=== PATIENT | male | born 1950 | race Caucasian/White ===

== ENCOUNTER 2022-04-06 12:13 | Outpatient (CLI) | payer MEDICARE, OTHER, SELFPAY | END 2022-04-06 12:14 | disposition home or self-care (01) | LOC: AMB 04-12 12:12 | PROVIDERS: PCP Family Medicine; Visit Provider Family Medicine | DX: R55 Syncope and collapse (principal); R42 Dizziness and giddiness | CPT/HCPCS: A0425; A0427 ==

== ENCOUNTER 2022-04-06 12:52 | Emergency (ER) | payer MEDICARE, OTHER, SELFPAY ==
[2022-04-06] VITALS (11 sets, daily range): BP systolic 127–151; BP diastolic 82–93; PULSE 53–89; RESP 18; TEMP 36.2; O2SAT 96–99; BMI 20.4
--- NOTE | 2022-04-06 13:53 | CRLHL7_ITS ---
For Patients: As a result of the Century Cures Act, medical imaging exams and procedure reports are released immediately into your electronic medical record. You may view this report before your referring provider. If you have questions, please contact your health care provider. INDICATION: Injury COMPARISON: None TECHNIQUE: CT examination of the head was performed as axial sections without intravenous contrast. Images were obtained from the vertex of the skull through the skull base. Please note that all CT scans at this facility use dose modulation, iterative reconstruction, and/or weight-based dosing when appropriate to reduce radiation dose to as low as reasonably achievable. FINDINGS: The brain shows no sign of mass lesion, mass effect, hemorrhage, or edema. There are involutional changes. There is mild cortical atrophy and there is mild white matter disease. There is no hydrocephalus. The visualized portions of the orbits are normal in appearance. The osseous structures are normal in appearance with no sign of abnormality in the skull base or calvarium. IMPRESSION: Involutional changes. No acute intracranial posttraumatic findings. Please note that all CT scans at this facility use dose modulation, iterative reconstruction, and/or weight-based dosing when appropriate to reduce radiation dose to as low as reasonably achievable. Dictated by Henry Ca MD @ 04/06/2022 2:57:51 PM (Electronically Signed)
[2022-04-06 14:27] LABS: Appearance Urine Cloudy (Clear); Bilirubin Urine Negative (Negative); Blood Urine 3+ (Negative); Color Urine Amber (Yellow); Glucose Urine Negative (Negative); Ketones Urine 1+ (Negative); Leukocyte Esterase Urine Trace (Negative); Nitrite Urine Negative (Negative); Protein Urine 2+ (Negative); Urobilinogen Urine 0.2 (0.2-1.0)
[2022-04-06 14:33] LABS: Basophils Absolute Auto 0.01 K/uL (0.00-0.30); Basophils Percent Auto 0.1 % (0.0-3.0); Eosinophils Absolute Auto 0.02 K/uL (0.00-0.50); Eosinophils Percent Auto 0.2 % (0.0-7.0); Hematocrit 43.8 % (37.0-53.0); Immature Granulocytes Abs Auto 0.02 K/uL (0.00-0.30); Immature Granulocytes Pct Auto 0.2 %; Lactate* 1.7 mmol/L (0.5-1.9); Lymphocytes Percent Auto 5.9 % (20-44); Mean Corpuscular HGB Conc 34 gm/dL (32-36); Mean Corpuscular Hemoglobin 30 pg (26-34); Mean Corpuscular Volume 88 fL (80-100); Monocytes Percent Auto 6.4 % (0.0-11.0); Neutrophils Percent Auto 87.2 % (42.0-72.0); Platelet Count* 193 K/uL (140-440); RDW Coefficient of Variation % 12.5 % (11.5-15.5); Red Blood Count 4.96 m/uL (4.30-5.90); White Blood Count* 9.56 K/uL (4.50-11.00)
[2022-04-06 14:42] LABS: Troponin, Point-of-Care* 0.01 ng/ml (0.01-0.04)
[2022-04-06 14:46] LABS: Amorphous Sediment Urine Few; Bacteria Urine Moderate; RBC Urine >100 (0-2)
[2022-04-06 14:52] LABS: Slide Review Reflex No
[2022-04-06 14:55] LABS: Albumin* 4.3 g/dL (3.3-5.0)
[2022-04-06 14:57] LABS: Chloride* 102 mmol/L (96-114); Potassium* 4.6 mmol/L (3.6-5.1); Sodium* 137 mmol/L (135-149)
[2022-04-06 14:58] LABS: Aspartate Amino Transferase* 25 U/L (12-35); Bilirubin Direct* 0.2 mg/dL (0.0-0.5); Bilirubin Total* 0.8 mg/dL (0.1-1.5); Total Protein* 7.2 g/dL (6.0-8.3)
[2022-04-06 14:59] LABS: Alanine Aminotransferase* 28 U/L (4-50); Alkaline Phosphatase* 72 U/L (40-150); Creatinine* 0.7 mg/dL (0.5-1.5); Est. Creatinine Clearance* 64.45; Estimated Glomerular Filt Rate 97 ml/min
[2022-04-06 15:00] LABS: Blood Urea Nitrogen* 22 mg/dL (7-30); Carbon Dioxide* 30 mmol/L (20-32); Glucose* 178 mg/dL (60-115)
[2022-04-06 15:01] LABS: Calcium* 9.7 mg/dL (8.4-10.6)
[2022-04-06 15:03] LABS: C Reactive Protein* 4.5 mg/dL (0.5-1.0)
[2022-04-06 15:13] LABS: PCR FLU A Negative PCR FLU A (Negative); PCR FLU B Negative PCR FLU B (Negative)
[2022-04-06 15:20] LABS: SARS PCR* Negative SARS-CoV-2 (Negative)
--- NOTE | 2022-04-06 15:21 | ED_ITS ---
HPI - General Adult General Chief complaint: Syncope/Fainted Stated complaint: Weakness Time Seen by Provider: 04/06/22 13:19 Source: patient Mode of arrival: ambulatory Limitations: no limitations History of Present Illness HPI narrative: 72-year-old male coming in today after syncopal episode at home. States he has not been feeling well for about 3 days with decreased energy and decreased appetite. He has been sleeping longer than usual. Last night he had some chills overnight woke up this morning covered in sweat. He states that he felt better this morning than he had in the last 3 days however he was in the kitchen when all of a sudden he passed out. It was right after he had stood up to walk over to the scrubber system attendant. His stated that he suddenly just collapsed, falling on top of the open scrubber system attendant. He woke up minute or so later. He knew where he was in understood that he had passed out. He was not confused. He did not complain of a headache or neck pain. He was not nauseated he did not vomit. He felt normal upon wakening. He is on Plavix. Again does tell me that he did not feel like he hit his head just has a small scratch on his arm from the scrubber system attendant. Patient has history of coronary artery disease status post stenting, diet- controlled diabetes, and is currently being worked up for hematuria. Related Data Home Medications Medication Instructions Recorded Confirmed amlodipine 5 mg tablet 5 mg PO DAILY 04/06/22 04/06/22 aspirin 81 mg chewable tablet 81 mg PO DAILY 04/06/22 04/06/22 (Aspirin Childrens) atorvastatin 40 mg tablet 40 mg PO DAILY 04/06/22 04/06/22 brimonidine 0.2 %-timolol 0.5 % 1 drp ophthalmic (eye) Q12H 04/06/22 04/06/22 eye drops clopidogrel 75 mg tablet 75 mg PO DAILY 04/06/22 04/06/22 latanoprost 0.005 % eye drops 1 drp ophthalmic (eye) DAILY 04/06/22 04/06/22 lisinopril 40 mg tablet 40 mg PO DAILY 04/06/22 04/06/22 metoprolol succinate 25 mg 25 mg PO DAILY 04/06/22 04/06/22 tablet,extended release 24 hr netarsudil 0.02 % eye drops 1 drp ophthalmic (eye) DAILY 04/06/22 04/06/22 (Rhopressa) Allergies Allergy/AdvReac Type Severity Reaction Status Date / Time No Known Drug Allergies Allergy Verified 04/06/22 13:06 Review of Systems Status of ROS: Reports: 10 or more systems reviewed and unremarkable except as noted in History and below [facility] Social History Smoking Status: Former smoker What tobacco products do you use: cigarettes Smoking quit date/years: <= 15 years ago Do you use any of these nicotine containing products: Vaping Products How often do you have a drink containing alcohol: monthly or less AUDIT-C Alcohol total score: 1 Non-prescribed substance use: marijuana (any form) Non-prescribed substance use details: via vape pen service: Yes (years ) Exam Narrative: Exam Narrative: Vital signs are stable, no evidence of orthostatic hypotension. Thin, well-developed patient in no acute distress. Alert and oriented. Answers questions appropriately. Mood and affect are appropriate. Thoughts are goal oriented and rational. No tangential or magical thinking noted. Patient speaks in full sentences without needing to catch his breath. Does not appear ill or toxic. HEENT: Normocephalic atraumatic. Pupils are equally round reactive to light. Extraocular muscles are intact. Conjunctivae are moist without any icterus noted. Moist mucous membranes. Posterior pharynx is normal. Neck is soft without any lymphadenopathy or thyromegaly. No masses are appreciated. He has no tenderness to palpation of the cervical spine. Good range of motion with flexion, extension, side way bending and rotation without discomfort. Cardiovascular: Heart is regular rate and rhythm S1 and S2 are present without any murmurs. Lungs: Clear to auscultation bilaterally no wheezes rhonchi or rales are appreciated. Patient takes deep breaths without any discomfort. Abdomen: Soft and nontender nondistended with normal bowel sounds. No guarding or rebound. No masses or organomegaly appreciated. Extremities: Bilateral lower extremities are without edema. Skin: Well perfused without any obvious rashes. Small abrasion of the left hand. Const: Vital Signs, click to edit/add: Vital Signs - 24 hr 04/06/22 12:57 04/06/22 14:18 04/06/22 14:17 Temperature 97.2 F L Pulse Rate 53 L Pulse Rate [Right Pulse Oximeter] 89 Pulse Rate [orthos tatic lying Pulse Oximeter] Pulse Rate [orthos tatic sitting Puls e Oximeter] Pulse Rate [orthos tatic standing Pul se Oximeter] Respiratory Rate 18 Blood Pressure Blood Pressure [Ri ght Upper Arm] 151/82 H Blood Pressure [or thostatic lying Le ft Arm] Blood Pressure [or thostatic sitting Left Arm] Blood Pressure [or thostatic standing Left Arm] Pulse Oximetry 99 96 97 Oxygen Delivery Me thod Room Air 04/06/22 14:33 04/06/22 15:02 04/06/22 14:45 Temperature Pulse Rate 73 59 L Pulse Rate [Right Pulse Oximeter] Pulse Rate [orthos tatic lying Pulse Oximeter] 66 Pulse Rate [orthos tatic sitting Puls e Oximeter] 63 Pulse Rate [orthos tatic standing Pul se Oximeter] 68 Respiratory Rate Blood Pressure Blood Pressure [Ri ght Upper Arm] Blood Pressure [or thostatic lying Le ft Arm] 142/84 H Blood Pressure [or thostatic sitting Left Arm] 139/93 H Blood Pressure [or thostatic standing Left Arm] 147/89 H Pulse Oximetry 96 97 Oxygen Delivery Me thod 04/06/22 14:52 04/06/22 14:55 04/06/22 14:59 Temperature Pulse Rate 66 63 68 Pulse Rate [Right Pulse Oximeter] Pulse Rate [orthos tatic lying Pulse Oximeter] Pulse Rate [orthos tatic sitting Puls e Oximeter] Pulse Rate [orthos tatic standing Pul se Oximeter] Respiratory Rate Blood Pressure 142/84 H 139/93 H 147/89 H Blood Pressure [Ri ght Upper Arm] Blood Pressure [or thostatic lying Le ft Arm] Blood Pressure [or thostatic sitting Left Arm] Blood Pressure [or thostatic standing Left Arm] Pulse Oximetry 97 97 97 Oxygen Delivery Me thod 04/06/22 15:00 04/06/22 15:01 Temperature Pulse Rate 64 56 L Pulse Rate [Right Pulse Oximeter] Pulse Rate [orthos tatic lying Pulse Oximeter] Pulse Rate [orthos tatic sitting Puls e Oximeter] Pulse Rate [orthos tatic standing Pul se Oximeter] Respiratory Rate Blood Pressure 127/91 H Blood Pressure [Ri ght Upper Arm] Blood Pressure [or thostatic lying Le ft Arm] Blood Pressure [or thostatic sitting Left Arm] Blood Pressure [or thostatic standing Left Arm] Pulse Oximetry 97 97 Oxygen Delivery Me thod Course Course Hospital Course: Given the fact the patient did fall from a standing position, unclear whether not he hit his head on the ground and that he is on Plavix, we did go ahead and proceed with a head CT which was unremarkable. Lab work was unremarkable aside from an elevated CRP-unclear significance of this without any other abnormalities noted. He does have significant hematuria which is not new and patient is currently undergoing a workup for this. In no evidence of infection of the urine. Vital Signs Vital signs: Initial Vital Signs Temperature 97.2 F L 04/06/22 12:57 Temperature Source Temporal Artery Scan 04/06/22 12:57 Pulse Rate 89 04/06/22 12:57 Respiratory Rate 18 04/06/22 12:57 Blood Pressure 151/82 H 04/06/22 12:57 Blood Pressure Mean 105 04/06/22 12:57 Blood Pressure Position Sitting 04/06/22 12:57 Pulse Oximetry 99 04/06/22 12:57 Oxygen Delivery Method 04/06/22 12:57 Vital Signs Temperature 97.2 F L 04/06/22 12:57 Pulse Rate 89 04/06/22 12:57 Respiratory Rate 18 04/06/22 12:57 Blood Pressure 151/82 H 04/06/22 12:57 Pulse Oximetry 99 04/06/22 12:57 Oxygen Delivery Method 04/06/22 12:57 Temperature 97.2 F L 04/06/22 12:57 Pulse Rate 66 04/06/22 15:02 Respiratory Rate 18 04/06/22 12:57 Blood Pressure 142/84 H 04/06/22 15:02 Pulse Oximetry 97 04/06/22 15:01 Oxygen Delivery Method 04/06/22 12:57 Medical Decision Making MDM Narrative Medical decision making narrative: [age] for a male with a syncopal episode, sounds like it was vasovagal given the patient had just stood up. He had no significant arrhythmias noted on quality assurance monitor chassis while he was here. Did consider other differential diagnoses today including TIA, cardiac arrhythmia, orthostatic syncope, seizure. Given the patient's history and physical, these diagnoses are much less likely. We did discuss getting plenty of rest over the next few days and staying well hydrated. We discussed reasons for follow-up. Patient was agreeable with everything we discussed and had no other questions or concerns. Lab Data Lab results reviewed: Yes I reviewed the patient's lab results Labs: Lab Results 04/06/22 04/06/22 04/06/22 Range/Units 13:05 13:53 14:20 WBC 9.56 (4.50-11.00) K/uL RBC 4.96 (4.30-5.90) m/uL Hgb 15.0 (13.5-17.5) gm/dL Hct 43.8 (37.0-53.0) % MCV 88 (80-100) fL MCH 30 (26-34) pg MCHC 34 (32-36) gm/dL RDW Coeff of Jeana 12.5 (11.5-15.5) % Plt Count 193 (140-440) K/uL Neut % (Auto) 87.2 H (42.0-72.0) % Lymph % (Auto) 5.9 L (20-44) % [place] % (Auto) 6.4 (0.0-11.0) % Eos % (Auto) 0.2 (0.0-7.0) % Baso % (Auto) 0.1 (0.0-3.0) % Neut # (Auto) 8.30 H (1.7-7.0) K/uL Lymph # (Auto) 0.60 L (0.90-2.90) K/uL [place] # (Auto) 0.60 (0.00-0.90) K/UL Eos # (Auto) 0.02 (0.00-0.50) K/uL Baso # (Auto) 0.01 (0.00-0.30) K/uL Sodium (135-149) mmol/L Potassium (3.6-5.1) mmol/L Chloride (96-114) mmol/L Carbon Dioxide (20-32) mmol/L BUN (7-30) mg/dL Creatinine (0.5-1.5) mg/dL Estimated Creat Clear Estimated GFR ml/min Glucose (60-115) mg/dL Lactate (0.5-1.9) mmol/L Calcium (8.4-10.6) mg/dL Total Bilirubin (0.1-1.5) mg/dL Direct Bilirubin (0.0-0.5) mg/dL AST (12-35) U/L ALT (4-50) U/L Alkaline Phosphatase (40-150) U/L C-Reactive Protein (0.5-1.0) mg/dL Total Protein (6.0-8.3) g/dL Albumin (3.3-5.0) g/dL Urine Color Ana A (Yellow) Urine Appearance Cloudy A (Clear) Urine pH 6.0 (5.0-8.5) Ur Specific [place] 1.020 (1.000-1.030) Urine Protein 2+ A (Negative) Urine Glucose (UA) Negative (Negative) Urine Ketones 1+ A (Negative) Urine Blood 3+ A (Negative) Urine Nitrite Negative (Negative) Urine Bilirubin Negative (Negative) Urine Urobilinogen 0.2 (0.2-1.0) Ur Leukocyte Esterase Trace A (Negative) Urine RBC >100 A (0-2) Urine WBC 5-10 A (0-5) Ur Squamous Epith Cells None (None-Few) Amorphous Sediment Few A (None) Urine Bacteria Moderate A (None) SARS-CoV-2 (PCR) Negative SARS-CoV-2 (Negative) Influenza Type A (PCR) Negative PCR FLU A (Negative) Influenza Type B (PCR) Negative PCR FLU B (Negative) POC Troponin I (0.01-0.04) ng/ml 04/06/22 04/06/22 04/06/22 Range/Units 14:20 14:20 14:20 WBC (4.50-11.00) K/uL RBC (4.30-5.90) m/uL Hgb (13.5-17.5) gm/dL Hct (37.0-53.0) % MCV (80-100) fL MCH (26-34) pg MCHC (32-36) gm/dL RDW Coeff of Jeana (11.5-15.5) % Plt Count (140-440) K/uL Neut % (Auto) (42.0-72.0) % Lymph % (Auto) (20-44) % [place] % (Auto) (0.0-11.0) % Eos % (Auto) (0.0-7.0) % Baso % (Auto) (0.0-3.0) % Neut # (Auto) (1.7-7.0) K/uL Lymph # (Auto) (0.90-2.90) K/uL [place] # (Auto) (0.00-0.90) K/UL Eos # (Auto) (0.00-0.50) K/uL Baso # (Auto) (0.00-0.30) K/uL Sodium 137 (135-149) mmol/L Potassium 4.6 (3.6-5.1) mmol/L Chloride 102 (96-114) mmol/L Carbon Dioxide 30 (20-32) mmol/L BUN 22 (7-30) mg/dL Creatinine 0.7 (0.5-1.5) mg/dL Estimated Creat Clear 64.45 Estimated GFR 97 ml/min Glucose 178 H (60-115) mg/dL Lactate 1.7 (0.5-1.9) mmol/L Calcium 9.7 (8.4-10.6) mg/dL Total Bilirubin 0.8 (0.1-1.5) mg/dL Direct Bilirubin 0.2 (0.0-0.5) mg/dL AST 25 (12-35) U/L ALT 28 (4-50) U/L Alkaline Phosphatase 72 (40-150) U/L C-Reactive Protein 4.5 H (0.5-1.0) mg/dL Total Protein 7.2 (6.0-8.3) g/dL Albumin 4.3 (3.3-5.0) g/dL Urine Color (Yellow) Urine Appearance (Clear) Urine pH (5.0-8.5) Ur Specific [place] (1.000-1.030) Urine Protein (Negative) Urine Glucose (UA) (Negative) Urine Ketones (Negative) Urine Blood (Negative) Urine Nitrite (Negative) Urine Bilirubin (Negative) Urine Urobilinogen (0.2-1.0) Ur Leukocyte Esterase (Negative) Urine RBC (0-2) Urine WBC (0-5) Ur Squamous Epith Cells (None-Few) Amorphous Sediment (None) Urine Bacteria (None) SARS-CoV-2 (PCR) (Negative) Influenza Type A (PCR) (Negative) Influenza Type B (PCR) (Negative) POC Troponin I (0.01-0.04) ng/ml 04/06/22 Range/Units 14:20 WBC (4.50-11.00) K/uL RBC (4.30-5.90) m/uL Hgb (13.5-17.5) gm/dL Hct (37.0-53.0) % MCV (80-100) fL MCH (26-34) pg MCHC (32-36) gm/dL RDW Coeff of Jeana (11.5-15.5) % Plt Count (140-440) K/uL Neut % (Auto) (42.0-72.0) % Lymph % (Auto) (20-44) % [place] % (Auto) (0.0-11.0) % Eos % (Auto) (0.0-7.0) % Baso % (Auto) (0.0-3.0) % Neut # (Auto) (1.7-7.0) K/uL Lymph # (Auto) (0.90-2.90) K/uL [place] # (Auto) (0.00-0.90) K/UL Eos # (Auto) (0.00-0.50) K/uL Baso # (Auto) (0.00-0.30) K/uL Sodium (135-149) mmol/L Potassium (3.6-5.1) mmol/L Chloride (96-114) mmol/L Carbon Dioxide (20-32) mmol/L BUN (7-30) mg/dL Creatinine (0.5-1.5) mg/dL Estimated Creat Clear Estimated GFR ml/min Glucose (60-115) mg/dL Lactate (0.5-1.9) mmol/L Calcium (8.4-10.6) mg/dL Total Bilirubin (0.1-1.5) mg/dL Direct Bilirubin (0.0-0.5) mg/dL AST (12-35) U/L ALT (4-50) U/L Alkaline Phosphatase (40-150) U/L C-Reactive Protein (0.5-1.0) mg/dL Total Protein (6.0-8.3) g/dL Albumin (3.3-5.0) g/dL Urine Color (Yellow) Urine Appearance (Clear) Urine pH (5.0-8.5) Ur Specific [place] (1.000-1.030) Urine Protein (Negative) Urine Glucose (UA) (Negative) Urine Ketones (Negative) Urine Blood (Negative) Urine Nitrite (Negative) Urine Bilirubin (Negative) Urine Urobilinogen (0.2-1.0) Ur Leukocyte Esterase (Negative) Urine RBC (0-2) Urine WBC (0-5) Ur Squamous Epith Cells (None-Few) Amorphous Sediment (None) Urine Bacteria (None) SARS-CoV-2 (PCR) (Negative) Influenza Type A (PCR) (Negative) Influenza Type B (PCR) (Negative) POC Troponin I 0.01 (0.01-0.04) ng/ml Imaging Data CT scan - head: Attestation: I have reviewed the pertinent imaging results. Radiologist's impression: TECHNIQUE: CT examination of the head was performed as axial sections without intravenous contrast. Images were obtained from the vertex of the skull through the skull base. Please note that all CT scans at this facility use dose modulation, iterative reconstruction, and/or weight-based dosing when appropriate to reduce radiation dose to as low as reasonably achievable. FINDINGS: The brain shows no sign of mass lesion, mass effect, hemorrhage, or edema. There are involutional changes. There is mild cortical atrophy and there is mild white matter disease. There is no hydrocephalus. The visualized portions of the orbits are normal in appearance. The osseous structures are normal in appearance with no sign of abnormality in the skull base or calvarium. IMPRESSION: Involutional changes. No acute intracranial posttraumatic findings. ECG Data Attestation: I personally reviewed and interpreted this ECG as follows: (normal sinus rhythm, pulse 59) Discharge Plan Discharge Clinical Impression: Vasovagal syncope Patient Disposition: Home, Self-Care Condition: Improved Additional Instructions: Make sure to get plenty of rest and stay well hydrated. Get up slowly from a sitting position for the next few days. If you feel like your symptoms are worsening return to the ER. Prescriptions: No Action amlodipine 5 mg tablet 5 mg PO DAILY clopidogrel 75 mg tablet 75 mg PO DAILY metoprolol succinate 25 mg tablet extended release 24 hr 25 mg PO DAILY lisinopril 40 mg tablet 40 mg PO DAILY aspirin [Aspirin Childrens] 81 mg tablet,chewable 81 mg PO DAILY atorvastatin 40 mg tablet 40 mg PO DAILY Rhopressa 0.02 % drops 1 drp ophthalmic (eye) DAILY brimonidine-timolol 0.2-0.5 % drops 1 drp ophthalmic (eye) Q12H latanoprost 0.005 % drops 1 drp ophthalmic (eye) DAILY Label Comments: INSTILL 1 DROP IN BOTH EYES EVERY EVENING Follow Up/Referrals: Sae Pittman MD [Primary Care Provider] - Stand Alone Forms: edPULSE Info Instructions
== END 2022-04-06 16:10 | disposition home or self-care (01) ==
PROVIDERS: Emergency Provider Family Medicine; PCP Family Medicine
DX: R55 Syncope and collapse (principal)
CPT/HCPCS: 36415; 70450; 80048; 80076; 81001; 83605; 84484; 85025; 86140; 87086; 87186; 87631; 93005; 94761; 99284; 99285

== ENCOUNTER 2023-02-27 12:30 | Outpatient (RCR) | payer MEDICARE, OTHER, SELFPAY | END 2023-02-27 12:53 | disposition home or self-care (01) | PROVIDERS: PCP Family Medicine; Visit Provider Family Medicine | DX: M25.561 Pain in right knee (principal); G89.29 Other chronic pain; Z51.89 Encounter for other specified aftercare | CPT/HCPCS: 97110; 97161 ==